=== PATIENT | male | born 1945 | race Caucasian/White ===

== ENCOUNTER 2023-08-30 11:50 | Emergency (ER) | payer MEDICARE, SELFPAY ==
[2023-08-30] VITALS (10 sets, daily range): BP systolic 95–140; BP diastolic 38–52; PULSE 63–66; RESP 12–19; TEMP 34.9–36.6; O2SAT 98–100; BMI 22.3
--- NOTE | ~2023-08-30 | CT_ITS ---
EXAMINATION: CT LUMBAR SPINE WITHOUT CONTRAST CLINICAL INFORMATION: Fall, lower back pain. Rule out fracture. COMPARISON: None available. TECHNIQUE: 2 mm thin axial and reformatted 2 mm thin sagittal coronal images of lumbar spine were obtained without contrast. This CT examination was performed using dose optimization techniques as appropriate, variously including the following: *Automated exposure control *Adjustment of mA and/or kV according to patient size (this includes techniques or standardized protocols for targeted exams where dose is matched to indication/reason for exam; i.e. extremities or head) *Use of iterative reconstruction technique DLP; 299 mGy-cm FINDINGS: There is normal lumbar lordosis. The vertebral heights and alignment is normal. There is minimal loss of L3-L4 disc heights. Rest the disc heights are normal. The L1-L2 disc level appears unremarkable. At L2-L3, L3-L4 disc levels is mild diffuse bulge without spinal canal stenosis. The neural foramina are patent bilaterally. There is moderate bilateral facet joint arthropathy over 1-and L2-L3 disc levels. At L3-L4 disc levels is mild diffuse bulge with no spinal canal stenosis. There is mild bilateral facet joint arthropathy with patent neural foramina. At L4-L5 and L5/S1 disc levels is minimal bulge but no spinal canal stenosis. The neural foramina patent bilaterally. There is no lytic or sclerotic process seen. The paravertebral soft tissues are normal. There is mild atherosclerotic changes of abdominal aorta and common iliac arteries without aneurysmal dilatation. No aggressive lytic or sclerotic process seen. CT/CT lumbar spine wo IV con IMPRESSION: Minimal disc bulges from L2-through L5/S1 disc level. No aggressive lytic or sclerotic process seen. Bilateral facet joint arthropathy as described above with patent neural foramina.
[2023-08-30 12:12] LABS: Glucose, Whole Blood 135 mg/dL (60-115)
--- NOTE | 2023-08-30 12:27 | PC.NURSE ---
Pt is a&ox4 coming in after having a fall while taking two steps with walker. Pt reports hitting lower back with a wheelchair pain is 8/10. Pt denies loc, being dizzy, loc, or cp. Pt is pale, warm and ry. Nueros intact.
[2023-08-30 12:34] LABS: MANUAL DIFF FLAG NO
[2023-08-30 12:49] LABS: Basophils Percent Auto 0.4 % (0-2); Eosinophils Absolute Auto 0.1 X10*3/uL (0.0-0.4); Eosinophils Percent Auto 1.3 % (0-4); Hematocrit 26.4 % (42.0-52.0); Hemoglobin 8.6 g/dl (14.0-18.0); Imm Gran Abs Auto 0.06 X10*3/uL (0.00-0.03); Imm Gran Pct Auto 0.5 % (0.0-0.4); Lymphocytes Absolute Auto 1.6 X10*3/uL (1.2-4.9); Lymphocytes Percent Auto 14.4 % (20-40); Mean Corpuscular HGB Conc 32.6 g/dl (31.0-36.0); Mean Corpuscular Hemoglobin 27.4 pg (27.0-33.0); Mean Corpuscular Volume 84.1 fL (80.0-98.0); Mean Platelet Volume 9.5 fL (9.4-12.4); Monocytes Absolute Auto 0.9 X10*3/uL (0.1-1.2); Monocytes Percent Auto 8.3 % (2-11); Neutrophils Absolute Auto 8.3 x10*3/uL (2.0-8.3); Neutrophils Percent Auto 75.1 % (45-73); Platelet Count 260 X10*3/uL (160-400); Prothrombin Time 12.4 SEC (11.1-13.3); Red Blood Count 3.14 X10*6/uL (4.60-5.80); Red Cell Distribution Width 14.1 % (11.0-16.0)
[2023-08-30 13:00] LABS: Anion Gap 17 (12-20); Blood Urea Nitrogen 100 mg/dL (9-16); Calcium 9.2 mg/dL (8.4-10.2); Carbon Dioxide 19 mmol/L (22-29); Chloride 97 mmol/L (96-108); Creatinine Clr Calc Pharmacy 12.6; Estimated Glomerular Filt Rate 14; Glucose Random 140 mg/dL (60-115); Potassium 3.5 mmol/L (3.3-5.1); Sodium 129 mmol/L (135-145)
--- NOTE | 2023-08-30 14:00 | ED.FALL ---
HPI - Fall General Chief Complaint: Fall Stated Complaint: LOW BACK PAIN S/P FALL THIS AM,+[facility] FROM SNF Time Seen by Provider: 08/30/23 13:03 Source: patient Mode of arrival: EMS Limitations: no limitations History of Present Illness HPI Narrative: 78-year-old male history of respiratory failure secondary to hypoxia, acute on chronic diastolic congestive heart failure, diabetes mellitus, diabetic kidney disease, who presents emergency department for evaluation of injuries from a fall. Patient states that he is at [facility] for rehab secondary to weakness. He states that he has been getting physical therapy to help him regain his strength. At 07:15 hours he states that he had to get up to go to the bed. He states that he used his walker but fell striking his back on the legs of a wheelchair. He denies hitting his head her losing consciousness. He states he was able to crawl on the floor back to his bed and get himself in the bed. He then use the call button to call for help. He is currently complaining of 10/10 pain in his lower back which is worse with movement. Denies any other pain The following was on the note sent in with the patient: ?Resident verbalized falling this morning but not witnessed and denied hitting his head. Complains of lower back pain, medicated with Tylenol with no effect and PA notified. Also observed with dropping of blood pressure. N.O.sent to ER for imaging Related Data Allergies Allergy/AdvReac Type Severity Reaction Status Date / Time adhesive [ADHESIVE] Allergy Unknown RASH Unverified 02/23/21 13:36 scallops AdvReac Unknown VOMITING Unverified 02/23/21 13:36 Review of Systems Review of Systems: Yes all other systems are reviewed and are negative [facility] Social History Social History (System 02/23/21 @ 13:36 by Thuy Desai) Smoked in Last 30 Days: No Use of substances other than those prescribed or required for medical reasons: No Advance Directives: Yes Advance Directives on File: No Physical Exam Vital Signs: Vital Signs: Last Vital Signs Temp 97.0 F 08/30/23 12:18 Pulse 63 08/30/23 15:55 Resp 16 08/30/23 15:55 BP 140/52 H 08/30/23 15:55 Pulse Ox 98 08/30/23 15:55 O2 Del Method Room Air 08/30/23 15:55 BMI result Body Mass Index 22.3 Vital signs were unremarkable. Exam: General: Awake, alert elderly male, answers questions appropriately, appears to be in [id number] distress secondary to his pain Head: Normocephalic, atraumatic EENT: PERRL, Lids normal, sclera normal, conjunctiva normal, nose normal , ears normal, throat without erythema or exudates Neck: Supple, no adenopathy, no trachea midline or C-spine tenderness Lung: breath sounds symmetric, no wheezing, rales or rhonchi Chest: symmetric movement, nontender Heart: regular rate and rhythm, normal S1, S2 no murmurs or rubs Abdomen: soft, non-tender, nondistended, normal bowel sounds Back: Patient has tenderness palpation of the paraspinal muscles in lumbar sacral area as well as the lumbar sacral spine with no localizing point tenderness Extremities: no deformities, moves all extremities symmetrically Neuro: Awake, alert, oriented, normal speech, cranial nerves intact, moves all extremities symmetrically Psych: Pleasant, cooperative Medications Administered Discontinued Medications Generic Name Dose Route Start Last Admin Trade Name Freq PRN Reason Stop Dose Admin Sodium Chloride 1,000 mls @ 999 mls/hr 08/30/23 14:01 08/30/23 14:24 Ns IV 08/30/23 15:01 999 mls/hr .Q1H1M STA Administration Morphine Sulfate 4 mg 08/30/23 14:01 08/30/23 14:24 Morphine Sulfate 4 Mg/Ml Cartridge IVPUSH 08/30/23 14:02 4 mg ONCE STA Administration Protocol Morphine Sulfate 4 mg 08/30/23 15:37 08/30/23 15:51 Morphine Sulfate 4 Mg/Ml Cartridge IVPUSH 08/30/23 15:38 4 mg ONCE STA Administration Protocol Ondansetron HCl 4 mg 08/30/23 14:01 08/30/23 14:24 Ondansetron Hcl 4 Mg/2 Ml Vial IVPUSH 08/30/23 14:02 4 mg ONCE ONE Administration Medical Decision Making Medical Decision Making MDM Narrative: 78-year-old male history of respiratory failure secondary to hypoxia, acute on chronic diastolic congestive heart failure, diabetes mellitus, diabetic kidney disease, who presents emergency department for evaluation of injuries from a fall. The fall was unwitnessed occurred his nursing facility this morning. Patient is currently complaining of 10/10 pain in his lower back. Vital signs were normal. Physical exam did reveal tenderness palpation of the lumbar sacral spine as well as the paraspinal muscles in lumbar sacral area. Following evaluation was ordered: CBC, BMP, point of care glucose, PT/INR, CT scan of the lumbar sacral spine Patient was treated with the following medications: Morphine 4 mg IV, Zofran 4 mg IV and normal saline x1 L 16:18 My independent interpretation patient's laboratory evaluation is as follows: Normocytic anemia with an H&H of 8.6 and 26.4-most likely secondary to renal disease. Sodium low 129. Bicarb low 19 BUN elevated 100 with a 4.1 the other 3.-patient does have a history of in disease. Potassiums normal 3.5. The patient required 2 more doses of morphine 4 mg IV to improve his pain CT scan of the thorax spine did not reveal any acute fractures but did reveal degenerative disc and joint disease consistent with his age Patient will be discharged back to his group home facility Differential Diagnosis Differential Diagnoses: The differential diagnosis associated with the presentation includes Differential diagnosis includes but is not limited to fracture of the lumbar sacral spine, contusion to the paraspinal muscles Lab Data 08/30/23 12:25 08/30/23 12:25 Labs: Lab Results 08/30/23 08/30/23 08/30/23 Range/Units 12:10 12:21 12:25 WBC 11.0 H (4.8-10.8) X10*3/uL RBC 3.14 L (4.60-5.80) X10*6/uL Hgb 8.6 L (14.0-18.0) g/dl Hct 26.4 L (42.0-52.0) % MCV 84.1 (80.0-98.0) fL MCH 27.4 (27.0-33.0) pg MCHC 32.6 (31.0-36.0) g/dl RDW 14.1 (11.0-16.0) % Plt Count 260 (160-400) X10*3/uL MPV 9.5 (9.4-12.4) fL Immature Gran % (Auto) 0.5 H (0.0-0.4) % Neut % (Auto) 75.1 H (45-73) % Lymph % (Auto) 14.4 L (20-40) % Edgar % (Auto) 8.3 (2-11) % Eos % (Auto) 1.3 (0-4) % Baso % (Auto) 0.4 (0-2) % Lymph # (Auto) 1.6 (1.2-4.9) X10*3/uL Edgar # (Auto) 0.9 (0.1-1.2) X10*3/uL Eos # (Auto) 0.1 (0.0-0.4) X10*3/uL Baso # (Auto) 0.0 (0.0-0.2) X10*3/uL Abs Immat Gran (auto) 0.06 H (0.00-0.03) X10*3/uL Absolute Neuts (auto) 8.3 (2.0-8.3) x10*3/uL Absolute Nucleated RBC 0.000 (0.0-0.012) X10*3/uL Nucleated RBC % (auto) 0.0 (0.0-0.2) /100WBC Hold Purple Top SEE NOTE PT 12.4 (11.1-13.3) SEC INR 1.0 (0.9-1.1) Sodium 129 L (135-145) mmol/L Potassium 3.5 (3.3-5.1) mmol/L Chloride 97 (96-108) mmol/L Carbon Dioxide 19 L (22-29) mmol/L Anion Gap 17 (12-20) BUN 100 H (9-16) mg/dL Creatinine 4.13 H* (0.5-1.4) mg/dL Estim Creat Clear Calc 12.6 Estimated GFR 14 POC Glucose 135 H (60-115) mg/dL Random Glucose 140 H (60-115) mg/dL Calcium 9.2 (8.4-10.2) mg/dL Total Creatine Kinase 188 H (38-174) U/L Radiology Impression Discussion of test interpretation with radiology: I have reviewed the radiologist's reading. Radiologist Impression: CT lumbar spine wo IV con IMPRESSION: Minimal disc bulges from L2-through L5/S1 disc level. No aggressive lytic or sclerotic process seen. Bilateral facet joint arthropathy as described above with patent neural foramina. Dictated By: Nico Waterman MD Discharge Plan Discharge Clinical Impression: Contusion of lumbar spinal region Fall Qualifiers: Encounter type: initial encounter Qualified Code(s): W19.XXXA - Unspecified fall, initial encounter Patient Disposition: Home, Self-Care Instructions: Acute Low Back Pain (ED) Additional Instructions: Your blood work is consistent with your kidney disease. The CT scan of your lumbar spine did not reveal any broken bones but you do have arthritis of the joints and lumbar disc disease which is consistent with your age. Your treated with morphine 4 mg IV x3 doses here in the emergency department. Continue taking your medications as prescribed by your providers. Your provider at [facility] will need to prescribed medications to help control your pain. Follow-up with your doctor in 2 days. Please return to the emergency department if your symptoms get worse or if you develop any symptoms that are concerning to you. CT lumbar spine wo IV con
[2023-08-30] MEDS: Morphine Sulfate 4 MG/ML CARTRIDGE IVPUSH ×3 (14:24→16:39)
[2023-08-30] MEDS: 0.9 % Sodium Chloride 1,000 ML 999 ML IV (14:24)
[2023-08-30] MEDS: ondansetron HCL 4 MG/2 ML VIAL IVPUSH (14:24)
--- NOTE | 2023-08-30 16:28 | PC.NURSE ---
Pt to be d/c, secritary booking ambulance ride to return to facility.
--- NOTE | 2023-08-30 16:57 | PC.NURSE ---
Spoke to Nurse at SNF, pt to be sent out by 1800 unless any changes are made. Nurse given verbal report. no questions at this time.
== END 2023-08-30 18:03 | disposition home or self-care (01) ==
PROVIDERS: Emergency Provider Emergency Medicine Emergency Medical Services; PCP Emergency Medicine
DX: S30.0XXA Contusion of lower back and pelvis, initial encounter (principal); R51.9 Headache, unspecified; R11.2 Nausea with vomiting, unspecified; W01.10XA Fall on same level from slipping, tripping and stumbling with subsequent striking against unspecified object, initial encounter; Y92.9 Unspecified place or not applicable; Y99.9 Unspecified external cause status; Z79.899 Other long term (current) drug therapy
CPT/HCPCS: 36415; 72131; 80048; 82550; 82947; 85025; 85610; 96361; 96374; 96375; 96376; 99284; 99285; J2270; J2405